=== PATIENT | male | born 1995 | race Caucasian/White ===

== ENCOUNTER 2017-09-23 10:54 | Emergency (ER) | payer MEDICAID ==
[~2017-09-23] VITALS: Ht 172.7 cm; Wt 77.2 kg
[2017-09-23 11:04] VITALS: Ht 172.7 cm; Wt 77.2 kg
[2017-09-23 13:58] VITALS: BP 127/70
== END 2017-09-23 13:58 | disposition home or self-care (01) ==
LOC: ED 10:54
DX: S06.9X1A Unspecified intracranial injury with loss of consciousness of 30 minutes or less, initial encounter (principal); S05.12XA Contusion of eyeball and orbital tissues, left eye, initial encounter; F07.81 Postconcussional syndrome; W51.XXXA Accidental striking against or bumped into by another person, initial encounter; Y93.67 Activity, basketball; Y92.89 Other specified places as the place of occurrence of the external cause; Y99.8 Other external cause status